=== PATIENT | female | born 1995 | race Caucasian/White ===

== ENCOUNTER 2017-02-22 20:47 | Emergency (ER) | payer SELFPAY ==
[~2017-02-22] VITALS: Ht 162.6 cm; Wt 68.0 kg
[2017-02-22 20:52] VITALS: BP 140/99; PULSE 120; RESP 18; TEMP 99; O2SAT 100
[2017-02-22] MEDS ORDERED: oxyCODONE/ACETAMINOPHEN 5 MG/325 MG TAB PO ONE (21:30)
[2017-02-22] MEDS ORDERED: CLINDAMYCIN 150 MG CAP PO ONE (21:30)
[2017-02-22] MEDS ORDERED: MAGICADU2 SWISH-SWAL (21:33)
[2017-02-22] MEDS ORDERED: CLIN1CAP5 PO (21:33)
[2017-02-22] MEDS ORDERED: ULTR50TA5 PO (21:33)
--- NOTE | 2017-02-22 21:33 | PD ---
HPI Chief Complaint: Oral / Dental Pain or Problem Time Seen by Provider: 21:15 Travel History International Travel<30 days: No Contact w/Intl Traveler<30days: No Traveled to known affect area: No History of Present Illness HPI Patient 22-year-old female smoker presents emergency department right lower mandibular pain and swelling for the past 4-5 days. Patient denies history of fever chest pain difficulty swallowing neck pain. Patient states she's had similar abscess sounds in the past as well but never had to have one drained. She just moved here and does not have a dentist. She did taking over-the- counter NSAIDs at home without significant pain relief. PFSH Past Medical History Diminished Hearing: No Gastrointestinal Disorders: Yes (crohns) Immunizations Current: Yes Tetanus Vaccination: > 5 Years Influenza Vaccination: No ?: Not LMP: 02-08-17 Past Surgical History Surgical History: No Previous Surgery Social History Alcohol Use: No Tobacco Use: Yes Substance Use: No Allergies-Medications (Allergen,Severity, Reaction): Coded Allergies: No Known Allergies (Unverified , 02/22/17) Reported Meds & Prescriptions Reported Meds & Active Scripts Active Magic Mouthwash Adult Liq (Multi-Ingredient Mouthwash/Gargle) 120 Ml Susp 5 Ml SWISH-SWAL ACHS Each 5mL contains: Nystatin 200,000units, Diphenhydramine 4.25mg, Viscous Lidocaine 10mg, Hayes syrup 0.8 mL Ultram (Tramadol HCl) 50 Mg Tab 50 Mg PO Q6H PRN Clindamycin (Clindamycin HCl) 150 Mg Cap 300 Mg PO Q6H 10 Days Review of Systems Except as stated in HPI: all other systems reviewed are Neg Physical Exam Narrative GENERAL: Well-nourished, well-developed patient. Crying but in no obvious distress. SKIN: Focused skin assessment warm/dry. HEAD: Normocephalic. EYES: No scleral icterus. No injection or drainage. ENT: Patient is of soft tissue swelling visible on the right side of her face over the mandible. There is no subungual tenderness. No discrete abscesses felt. She does have chronic gingivitis. Multiple caries are noted. NECK: Supple, trachea midline. No JVD or lymphadenopathy. CARDIOVASCULAR: Regular rate and rhythm without murmurs, gallops, or rubs. RESPIRATORY: Breath sounds equal bilaterally. No accessory muscle use. GASTROINTESTINAL: Abdomen soft, non-tender, nondistended. MUSCULOSKELETAL: No cyanosis, or edema. BACK: Nontender without obvious deformity. No CVA tenderness. Data Data Last Documented VS Vital Signs Date Time Temp Pulse Resp B/P Pulse Ox O2 Delivery O2 Flow Rate FiO2 02/22/17 20:52 99.0 120 18 140/99 100 Orders Oxycodone-Acetamin 5-325 Mg (Percocet (02/22/17 21:30) Clindamycin (Cleocin) (02/22/17 21:30) [facility] Medical Decision Making Medical Screen Exam Complete: Yes Emergency Medical Condition: Yes Differential Diagnosis Dental caries, dental pain, dental abscess, apical abscess. Narrative Course Patient 22-year-old female presents emergency department for evaluation of dental pain and swelling. She is afebrile. No indication for Stephen's angina. There is some mild edema on the right side of her face and no discrete abscess could be felt. At this point patient will benefit from by mouth antibiotics. Will be given Percocet in emergency department Ultram at home. Discussed with her need follow-up with a dentist or return to ED criteria. She stable for discharge this time. Diagnosis Primary Impression: Dental abscess Additional Instructions: Follow-up with a dentist at your earliest convenience. Return to the emergency department the swelling worsens or use start having fevers. Stop smoking smoking leads to gingival disease tooth loss as well as cancer and heart disease. Med/Other Pt SpecificInfo: Prescription(s) given Scripts Zwbhviup-Yqguaurbshkiiai-Olyejdxpr Liq (Magic Mouthwash Adult Liq)120 Ml Susp5 Ml SWISH-SWAL ACHS #120 ML Ref 0 Each 5mL contains: Nystatin 200,000units, Diphenhydramine 4.25mg, Viscous Lidocaine 10mg, Hayes syrup 0.8 mL Prov:Derek Allison MD 02/22/17 Tramadol (Ultram)50 Mg Tab50 Mg PO Q6H PRN (PAIN) #14 TAB Ref 0 Prov:Derek Allison MD 02/22/17 Clindamycin 150 Mg Ear002 Mg PO Q6H 10 Days Ref 0 Prov:Derek Allison MD 02/22/17 Disposition: 01 DISCHARGE HOME Condition: Stable Derek Allison MD Feb 22, 2017 21:33 Derek Allison MD Feb 22, 2017 21:33
== END 2017-02-22 22:17 | disposition home or self-care (01) ==
LOC: PHEFT 20:47
DX: K04.7 Periapical abscess without sinus (principal); Z72.0 Tobacco use; Z87.19 Personal history of other diseases of the digestive system
CPT/HCPCS: 99282